=== PATIENT | female | born 1945 ===

== ENCOUNTER → 2022-02-09 10:48 | Outpatient (CLI) | payer MEDICARE, OTHER, SELFPAY ==
--- NOTE | ~2022-02-09 | MR_ITS ---
EXAMINATION: MR abdomen wo/w con DATE: 02/09/2022 12:20 INDICATION: Lesion of liver greater than 1 cm diameter TECHNIQUE: Magnetic resonance imaging (MRI) of the abdomen was performed without and with 14 mL Multi josé intravenous contrast. Sequences included coronal T2-weighted SS-FSE, coronal and axial FS 2D-F IESTA, axial STIR FSE, axial T2-weighted SS-FSE, axial T2-weighted FS SS-FSE, axial diffusion-weighte d SE, axial dual-echo T1-weighted FSPGR, and axial and coronal T1-weighted LAVA. Postcontrast axial T 1-weighted LAVA images were obtained in a time course. Postcontrast coronal T1-weighted LAVA images w ere obtained. COMPARISON: None. FINDINGS: Heart size is normal. No pericardial or pleural effusion. There are multiple small T2 hyperintense no nenhancing bilateral renal cysts, the largest measuring 11 mm at the lower pole of the left kidney. S pleen, pancreas and bilateral adrenal glands are normal. Diffuse hepatic steatosis. The gallbladder i s not visualized and likely surgically absent with a couple foci of susceptibility artifact at the po rta hepatis likely representing cholecystectomy clips. The common bile duct measures up to 7 mm which is within normal limits post cholecystectomy with no evident distal obstructing stone or mass. There are 3 similar-appearing hepatic lesions in segments 2A, 2B and 6 which demonstrate T2 hyperintense n onenhancing either tiny clustered cysts or serpiginous tubular structures with mild peripheral enhanc ement. The largest collection in segment 2A measures 2.7 x 1.7 cm and the next largest in segment 6 e xtends approximately 3.3 cm from centrally to the liver capsule and measures up to 1 cm in maximal or thogonal dimension. There is otherwise no intrahepatic biliary ductal dilation. Moderate diverticulos is along the sigmoid colon. There is a nonspecific 3 cm likely cystic T2 hyperintense, T1 isointense nonenhancing lesion with single thin internal septation position in the left lower quadrant along the anterior margin of the left psoas muscle. No surrounding inflammatory stranding to suggest abscess o r diverticulitis. No pathologically enlarged abdominal or pelvic lymphadenopathy. Severe lumbar spond ylosis. IMPRESSION: 1. A few small predominately subcapsular T2 hyperintense hepatic lesions which are either clustered c ystic or serpiginous tubular with thin peripheral rim of enhancement. Differential would include dist inct dilated biliary ducts, small hepatic abscesses, hepatic lymphangioma, Caroli's disease or parasi tic infection such as hepatic fascioliasis. 2.Indeterminate 3 cm cystic lesion with single thin internal septation in the left lower quadrant. Di fferential would include a left adnexal cyst, large sigmoid diverticulum or peritoneal cyst. Reviewed, dictated and finalized at location A. IMPRESSION: 1. A few small predominately subcapsular T2 hyperintense hepatic lesions which are either clustered cystic or serpiginous tubular with thin peripheral rim of enhancement. Differential would include distinct dilated biliary ducts, small h epatic abscesses, hepatic lymphangioma, Caroli's disease or parasitic infection such as hepatic fascioliasis. 2.Indeterminate 3 cm cystic lesion with single thin internal septation in the l eft lower quadrant. Differential would include a left adnexal cyst, large sigmo id diverticulum or peritoneal cyst.
[2022-02-09 11:32] LABS: Estimated Glomerular Filt Rate > 60
== END ==
PROVIDERS: PCP Internal Medicine; Visit Provider Internal Medicine
DX: K76.9 Liver disease, unspecified (principal); R93.5 Abnormal findings on diagnostic imaging of other abdominal regions, including retroperitoneum
CPT/HCPCS: 74183; A9577